=== PATIENT | male | born 1935 ===

== ENCOUNTER 2017-06-25 09:23 | Observation (INO) | payer MEDICARE, OTHER ==
[2017-06-25 09:49] VITALS: BMI 21.5
[2017-06-25] MEDS ORDERED: DiphenhydrAMINE 50 mg/ml Inj IV STA (09:52)
[2017-06-25] MEDS ORDERED: DiphenhydrAMINE 50 mg/ml Inj ONE (09:55)
--- NOTE | 2017-06-25 10:00 | ED PDOC ---
HPI: Allergic Reaction Time Seen by Provider: 06/25/17 09:34 Chief Complaint (Nursing): Allergic Reaction Chief Complaint (Provider): Facial Swelling History Per: Patient History/Exam Limitations: no limitations Onset/Duration Of Symptoms: Days (1 day ago) Current Symptoms Are (Timing): Still Present Additional Complaint(s): 82 yo male with a history of hypertension and diabetes mellitus, presents to the ED complaining of facial swelling with associated itchiness to arms and legs bilaterally, onset of 1 day ago. Patient reports of visiting [facility] and was discharged with a Prednisone prescription, but did not fill out the prescription. Patient's then woke up this morning with worsened facial swelling, prompting his visit to the ED. He denies any throat swelling, shortness of breath, difficulty swallowing, wheezing, vomiting , diarrhea or dizziness. PCP: Dr. Pemberton Past Medical History Reviewed: Historical Data, Nursing Documentation, Vital Signs Vital Signs: Last Vital Signs Temp 98 F 06/25/17 09:47 Pulse 121 H 06/25/17 09:47 Resp 20 06/25/17 09:47 BP 128/77 06/25/17 09:47 Pulse Ox 99 06/25/17 09:47 - Medical History PMH: Diabetes, HTN - Surgical History Surgical History: No Surg Hx - Family History Family History: States: Unknown Family Hx - Social History Current smoker - smoking cessation education provided: No Ex-Smoker (has not smoked in the last 12 months): No Alcohol: Social Drugs: Denies - Home Medications Home Medications: Ambulatory Orders Medication Instructions Recorded Amlodipine Bes/Olmesartan Med 1 each PO DAILY 06/25/17 [Hanny 5-40 mg Tablet] Aspirin [Aspirin Chewable] 81 mg PO DAILY 06/25/17 Cholecalciferol (Vitamin D3) 2,000 unit PO DAILY 06/25/17 [Vitamin D3] Clopidogrel [Plavix] 75 mg PO DAILY 06/25/17 Empagliflozin [Jardiance] 25 mg PO DAILY 06/25/17 Ferrous Sulfate [Ferosul] 325 mg PO DAILY 06/25/17 Finasteride [Proscar] 5 mg PO DAILY 06/25/17 Linagliptin [Tradjenta] 5 mg PO DAILY 06/25/17 Metformin HCl [Metformin HCl ER] 1,000 mg PO DAILY 06/25/17 Omeprazole 40 mg PO DAILY 06/25/17 Tamsulosin HCl [Flomax] 0.4 mg PO DAILY 06/25/17 - Allergies Allergies/Adverse Reactions: Allergies Allergy/AdvReac Type Severity Reaction Status Date / Time No Known Allergies Allergy Verified 06/25/17 09:46 Review of Systems ROS Statement: Except As Marked, All Systems Reviewed And Found Negative Constitutional: Positive for: Other (facial swelling, itchiness to arms and legs bilaterally) ENT: Negative for: Throat Swelling, Other (trouble swallowing) Respiratory: Negative for: Shortness of Breath, Wheezing Gastrointestinal: Negative for: Vomiting, Diarrhea Neurological: Negative for: Dizziness Physical Exam - Reviewed Nursing Documentation Reviewed: Yes Vital Signs Reviewed: Yes - Physical Exam Appears: Positive for: Non-toxic, No Acute Distress Head Exam: Positive for: ATRAUMATIC. Negative for: NORMOCEPHALIC (angioedema diffused to lower face and to both upper and lower lips) Skin: Positive for: Normal Color, Warm. Negative for: Rash Eye Exam: Positive for: Normal appearance, EOMI, PERRL ENT: Positive for: Normal ENT Inspection. Negative for: Other (tongue swelling) Neck: Positive for: Normal, Painless ROM Cardiovascular/Chest: Positive for: Regular Rate, Rhythm. Negative for: Murmur Respiratory: Positive for: Normal Breath Sounds. Negative for: Respiratory Distress Gastrointestinal/Abdominal: Positive for: Normal Exam, Soft. Negative for: Tenderness Back: Positive for: Normal Inspection Extremity: Positive for: Normal ROM, Other (no erythema). Negative for: Pedal Edema, Deformity Neurologic/Psych: Positive for: Alert, Oriented. Negative for: Motor/Sensory Deficits - Laboratory Results Result Diagrams: 06/25/17 12:55 06/25/17 12:55 - ECG O2 Sat by Pulse Oximetry: 99 (RA) Pulse Ox Interpretation: Normal - Critical Care Total Time (In Min): 30 Disposition - Clinical Impression Clinical Impression: Angioedema - Patient ED Disposition Is Patient to be Admitted: Yes Discussed With : Natanael Pemberton Doctor Will See Patient In The: Hospital Counseled Patient/Family Regarding: Studies Performed, Diagnosis - Disposition Disposition Time: 12:22 Condition: FAIR - Pt Status Changed To: Hospital Disposition Of: Inpatient - Admit Certification Admit to Inpatient:: After my assessment, the patient will require hospitalization for at least two midnights. This is because of the severity of symptoms shown, intensity of services needed, and/or the medical risk in this patient being treated as an outpatient. - POA Present On Arrival: None Medical Decision Making Medical Decision Making: Time: --09:52 Impression: --Angioedema Differential: -- allergic reaction vs Angioedema induced by MOIZ inhibitors Plan: --diphenhydramine 25 mg IV --Famotidine 20mg IVP --methylprednisolone 125 mg IVP Reassess 1200 Improved but still with angioedema. Required admission for airway monitoring to ICU. [address] Sanchez for admission to ICU [address] Fuchs for consult. Recommends decadrone. Scribe Attestation: Documented by Stalin Saini acting as a scribe for Grace Aviles MD.
[2017-06-25] MEDS ORDERED: Dexamethasone 10 MG in Sodium Chloride 0.9% 50 ML IV ONE (12:27)
[2017-06-25 13:08] LABS: BASO % 0.1 % (0.0-2.0); HEMOGLOBIN 13.8 g/dL (12.0-18.0); LYMPH # 0.5 K/uL (1.0-4.3); MEAN CELL VOLUME 85.8 fl (80.0-94.0); MEAN CORPUSCULAR HEMOGLOBIN 27.5 pg (27.0-31.0); MEAN CORPUSCULAR HGB CONC 32.1 g/dL (33.0-37.0); MEAN PLATELET VOLUME 9.4 fl (7.2-11.7); MONO # 0.1 K/uL (0.0-0.8); MONO % 0.5 % (0.0-10.0); NEUT % 95.4 % (50.0-75.0); NRBC % 0.1 % (0.0-0.0); PLATELET COUNT 334 K/uL (130-400); RBC 5.02 Mil/uL (4.40-5.90); WHITE BLOOD COUNT 13.6 K/uL (4.8-10.8)
[2017-06-25 13:16] LABS: CALCIUM 9.8 mg/dL (8.4-10.2)
--- NOTE | 2017-06-25 13:38 | CP.CCUPN ---
CCU Subjective - Physician Review Events Since Last Encounter (Free Text): 06/25/17 13:34 82 male with a history of hypertension, diabetes mellitus, came to ER complaining of facial swelling and itching to arms and legs for 1. Patient was seen at [facility] yesterday and was discharged with a Prednisone prescription, but did not fill out the prescription. Patient's woke up this morning with worsened facial swelling. He denies any throat swelling, shortness of breath, difficulty swallowing, wheezing, vomiting , diarrhea, dizziness or chest pain CCU Objective - Vital Signs / Intake & Output Vital Signs (Last 4 hours): Vital Signs Temp Pulse Resp BP Pulse Ox 06/25/17 12:36 98 F 97 H 20 131/77 100 06/25/17 12:15 99 06/25/17 10:56 93 H 19 134/81 100 06/25/17 09:47 98 F 121 H 20 128/77 99 Intake and Output (Last 8hrs): Intake & Output 06/24/17 06/25/17 06/25/17 22:59 06:59 14:59 Weight 150 lb - Physical Exam Head: Positive for: Atraumatic, Normocephalic, Other (swallen lips) Pupils: Positive for: PERRL Extroacular Muscles: Positive for: EOMI Conjunctiva: Positive for: Normal Mouth: Positive for: Moist Mucous Membranes Nose (External): Positive for: Atraumatic Neck: Positive for: Normal Range of Motion Respiratory/Chest: Positive for: Clear to Auscultation Cardiovascular: Positive for: Regular Rate and Rhythm Abdomen: Positive for: Normal Bowel Sounds Upper Extremity: Positive for: Normal Inspection Lower Extremity: Positive for: Normal Inspection Neurological: Positive for: GCS=15, Speech Normal Skin: Positive for: Warm, Dry Psychiatric: Positive for: Alert, Oriented x 3 - Patient Studies Lab Studies: Lab Studies 06/25/17 06/25/17 Range/Units 12:55 12:55 WBC 13.6 H (4.8-10.8) K/uL RBC 5.02 (4.40-5.90) Mil/uL Hgb 13.8 (12.0-18.0) g/dL Hct 43.1 (35.0-51.0) % MCV 85.8 (80.0-94.0) fl MCH 27.5 (27.0-31.0) pg MCHC 32.1 L (33.0-37.0) g/dL RDW 14.0 (11.5-14.5) % Plt Count 334 (130-400) K/uL MPV 9.4 (7.2-11.7) fl Neut % (Auto) 95.4 H (50.0-75.0) % Lymph % (Auto) 4.0 L (20.0-40.0) % [place] % (Auto) 0.5 (0.0-10.0) % Eos % (Auto) 0.0 (0.0-4.0) % Baso % (Auto) 0.1 (0.0-2.0) % Neut # (Auto) 13.0 H (1.8-7.0) K/uL Lymph # (Auto) 0.5 L (1.0-4.3) K/uL [place] # (Auto) 0.1 (0.0-0.8) K/uL Eos # (Auto) 0.0 (0.0-0.7) K/uL Baso # (Auto) 0.0 (0.0-0.2) K/uL Sodium 148 (132-148) mmol/l Potassium 4.7 (3.6-5.0) MMOL/L Chloride 105 (98-107) mmol/L Carbon Dioxide 23 (22-30) mmol/L Anion Gap 25 H (10-20) BUN 26 H (9-20) mg/dl Creatinine 1.5 (0.8-1.5) mg/dl Est GFR ( Amer) 54 Est GFR (Non-Af Amer) 45 Random Glucose 149 H (75-110) mg/dL Calcium 9.8 (8.4-10.2) mg/dL Laboratory Results - last 24 hr 06/25/17 06/25/17 12:55 12:55 WBC 13.6 H RBC 5.02 Hgb 13.8 Hct 43.1 MCV 85.8 MCH 27.5 MCHC 32.1 L RDW 14.0 Plt Count 334 MPV 9.4 Neut % (Auto) 95.4 H Lymph % (Auto) 4.0 L [place] % (Auto) 0.5 Eos % (Auto) 0.0 Baso % (Auto) 0.1 Neut # (Auto) 13.0 H Lymph # (Auto) 0.5 L [place] # (Auto) 0.1 Eos # (Auto) 0.0 Baso # (Auto) 0.0 Sodium 148 Potassium 4.7 Chloride 105 Carbon Dioxide 23 Anion Gap 25 H BUN 26 H Creatinine 1.5 Est GFR ( Amer) 54 Est GFR (Non-Af Amer) 45 Random Glucose 149 H Calcium 9.8 Assessment/Plan - Assessment and Plan (Free Text) Assessment: A/P Allergic reaction, angioedema, HTN, DM - ENT consult, called from ER - Continue steroid, bendryl, pepcid - Close moniter - DVT prophylaxis - FS with coverage Critical care 35 min
[2017-06-25 14:55] LABS: LYMPHOCYTE 3 % (20-50); MONOCYTE 1 % (0-10); NEUTROPHIL 96 % (42-75); PLATELET ESTIMATE NORMAL (NORMAL); TOTAL CELLS COUNTED 100
[2017-06-25] MEDS: Enoxaparin 40 mg Syringe SC SCH (15:28)
[2017-06-25] MEDS: Insulin Regular 100 units/ml SC SCH ×2 (16:42→22:00)
[2017-06-25] MEDS: Sodium Chloride 0.9% 1,000 ML IV SCH (16:50)
[2017-06-25] MEDS ORDERED: Dexamethasone 10 MG in Sodium Chloride 0.9% 50 ML IVPB SCH (17:00)
--- NOTE | 2017-06-25 20:20 | CP.PCM.HP ---
History of Present Illness - History of Present Illness History of Present Illness: This is an 82 y/o male with hx of HTN and DM 2 admitted for worsening of facial edema, lip edema and some throat discomfort for 1 day. He has no change in medications .He has been on his current medications for sometime. He claims that he started having pruritus all over his body as soon as he finished his dinner and noted progressive facial swelling. He sought consult at [facility] and was sent home on Prednisone. He noted worsening of sx as soon as he got home and woke up with more swelling hence sough consult at the ER. He denies having any SOB or wheezing. Medical Hx HTN HYperlipidemia DM 2 Allergies: None Present on Admission - Present on Admission Any Indicators Present on Admission: No History of DVT/PE: No History of Uncontrolled Diabetes: No Urinary Catheter: No Decubitus Ulcer Present: No Past Patient History - Past Medical History & Family History Past Medical History?: Yes - Past Social History Smoking Status: Never Smoked - CARDIAC Hx Hypertension: Yes - ENDOCRINE/METABOLIC Hx Diabetes Mellitus Type 2: Yes - HEMATOLOGICAL/ONCOLOGICAL Hx AIDS: No Hx Human Immunodeficiency Virus (HIV): No - MUSCULOSKELETAL/RHEUMATOLOGICAL Hx Falls: No - GENITOURINARY/GYNECOLOGICAL Hx Prostate Problems: Yes (hx of BPH) - PSYCHIATRIC Hx Substance Use: No - SURGICAL HISTORY Hx Herniorrhaphy: Yes (in 1994) - ANESTHESIA Hx Anesthesia: Yes Hx Anesthesia Reactions: No Hx Malignant Hyperthermia: No Has any member of the family had a problem w/ anesthesia?: No Meds Allergies/Adverse Reactions: Allergies Allergy/AdvReac Type Severity Reaction Status Date / Time No Known Allergies Allergy Verified 06/25/17 09:46 Physical Exam - Head Exam Additional comments: facial swelling lip edema - Eye Exam Eye Exam: Normal appearance - ENT Exam ENT Exam: Mucous Membranes Moist - Respiratory Exam Respiratory Exam: Clear to Auscultation Bilateral, NORMAL BREATHING PATTERN - Cardiovascular Exam Cardiovascular Exam: REGULAR RHYTHM - GI/Abdominal Exam GI & Abdominal Exam: Normal Bowel Sounds - Neurological Exam Neurological exam: CN II-XII Intact, Oriented x3 Results - Vital Signs Recent Vital Signs: Last Vital Signs Temp 98.0 F 06/25/17 17:58 Pulse 83 06/25/17 17:58 Resp 16 06/25/17 17:58 BP 128/69 06/25/17 17:58 Pulse Ox 98 06/25/17 17:58 - Labs Result Diagrams: 06/25/17 12:55 06/25/17 12:55 Labs: Laboratory Results - last 24 hr 06/25/17 06/25/17 06/25/17 12:55 12:55 15:18 WBC 13.6 H RBC 5.02 Hgb 13.8 Hct 43.1 MCV 85.8 MCH 27.5 MCHC 32.1 L RDW 14.0 Plt Count 334 MPV 9.4 Neut % (Auto) 95.4 H Lymph % (Auto) 4.0 L [place] % (Auto) 0.5 Eos % (Auto) 0.0 Baso % (Auto) 0.1 Neut # (Auto) 13.0 H Lymph # (Auto) 0.5 L [place] # (Auto) 0.1 Eos # (Auto) 0.0 Baso # (Auto) 0.0 Neutrophils % (Manual) 96 H Lymphocytes % (Manual) 3 L Monocytes % (Manual) 1 Platelet Estimate Normal RBC Morphology Normal Sodium 148 Potassium 4.7 Chloride 105 Carbon Dioxide 23 Anion Gap 25 H BUN 26 H Creatinine 1.5 Est GFR ( Amer) 54 Est GFR (Non-Af Amer) 45 POC Glucose (mg/dL) 125 H Random Glucose 149 H Calcium 9.8 Assessment & Plan (1) Angioedema Status: Acute (2) Hypertension Status: Acute (3) Diabetes mellitus type 2 in nonobese Status: Acute (4) Hyperlipidemia Status: Acute - Assessment and Plan (Free Text) Plan: Cont meds from home start IV solumedrol or Decadron benadryl ICU observe for onset of resp distress. Oxygen
[2017-06-25] MEDS: DiphenhydrAMINE 50 mg/ml Inj IVP SCH (20:40)
--- NOTE | 2017-06-25 22:43 | CON ---
DATE: 06/25/2017 REASON FOR CONSULTATION: Possible throat edema. REQUESTING PHYSICIAN: Emergency Room. HISTORY OF PRESENT ILLNESS: This is an 82-year-old male who began having edema of the face and lips today. It was [id number] in intensity. He presented to the ER. His symptoms were this constant. There was no shortness of breath, no dysphagia, no stridor and no hoarseness, the edema was on both sides of the face and lips. The patient was given steroids and was admitted to ICU. At this point, the patient was not complain of any edema. No hoarseness. No dysphagia. No shortness of breath. No stridor. PAST MEDICAL HISTORY: As noted in the chart by me. MEDICATIONS: As noted in the chart by me. PHYSICAL EXAMINATION: HEAD: Atraumatic and normocephalic. FACE: Good facial movements bilaterally. CONSTITUTIONAL: Well-fed, well-nourished. COMMUNICATION: Communicates well and appropriately. EXTERNAL NOSE AND EARS: No masses. No lesions. No erythema. No edema. INTERNAL NOSE: Deviated septum. No masses. No lesions. No erythema. No edema. ORAL CAVITY AND OROPHARYNX: No masses. No lesions. No erythema. No edema. LIPS AND GUMS: No masses. No lesions. No erythema. No edema. NECK: Supple. THYROID: No thyromegaly. No goiter. LYMPH NODES: No lymphadenopathy of the neck. ASSESSMENT: 1. Angioedema resolving. 2. Deviated septum. 3. Angioedema most likely secondary to MOIZ inhibitor if he is on it. If not he may be having an allergic reaction to one of his medications or foods that he ate. recommend allergy workup RECOMMEND: Changing blood pressure medications so that there is no MOIZ inhibitor. The patient can be discharged home tomorrow on a Medrol Dosepak. Gumaro Fuchs MD MTDCynthia
[2017-06-26 05:34] LABS: BASO % 0.1 % (0.0-2.0); LYMPH # 1.6 K/uL (1.0-4.3); LYMPH % 9.4 % (20.0-40.0); MEAN CELL VOLUME 86.7 fl (80.0-94.0); MEAN CORPUSCULAR HEMOGLOBIN 27.6 pg (27.0-31.0); MEAN CORPUSCULAR HGB CONC 31.9 g/dL (33.0-37.0); MEAN PLATELET VOLUME 9.9 fl (7.2-11.7); MONO # 0.6 K/uL (0.0-0.8); MONO % 3.4 % (0.0-10.0); NEUT # 14.5 K/uL (1.8-7.0); NEUT % 87.1 % (50.0-75.0); RBC 4.69 Mil/uL (4.40-5.90); RED CELL DISTRIBUTION WIDTH 14.2 % (11.5-14.5); WHITE BLOOD COUNT 16.6 K/uL (4.8-10.8)
[2017-06-26 05:49] LABS: CALCIUM 9.6 mg/dL (8.4-10.2)
[2017-06-26] MEDS: Insulin Regular 100 units/ml SC SCH ×2 (06:33→11:04)
--- NOTE | 2017-06-26 07:22 | CP.CCUPN ---
CCU Subjective - Physician Review Subjective (Free Text): 06/26/17 15:18 The patient was Seen/interviewed and examined by me at the bedside during ICU round, Medical records reviewed and Management issues were discussed and formulated with the house staff. Events reviewed 82 Years old Male with PMHx of of HTN, HLD, DM 2 and BPH He developed swelling of the face and lips and had some discomfort with swallowing after his dinner. Admitted with angioedema, placed on IV steroids and Benadtyl. Pt was evaluated by ENT, edema resolved and no airway obstructions This morning he feels well Clinically improving, and is hemodynamically stable, denies any chest pain or SOB Continue steroid, bendryl, pepcid and the plan is to transfer out of the ICU. CCU Objective - Vital Signs / Intake & Output Vital Signs (Last 4 hours): Vital Signs Temp Pulse Resp BP Pulse Ox 06/26/17 06:00 63 13 118/65 96 06/26/17 04:00 97.3 F L 72 12 102/49 L 97 Intake and Output (Last 8hrs): Intake & Output 06/25/17 06/26/17 06/26/17 22:59 06:59 14:59 Intake Total 400 500 Output Total 100 675 Balance 300 -175 Weight 134 lb 7 oz Intake: IV 400 500 Output: Urine 100 675 Urine, Voided 100 675 Other: # Voids Urine, Voided 1 # Bowel Movements 1 - Physical Exam Head: Positive for: Atraumatic, Normocephalic, Other (swallen lips) Pupils: Positive for: PERRL Extroacular Muscles: Positive for: EOMI Conjunctiva: Positive for: Normal Mouth: Positive for: Moist Mucous Membranes Nose (External): Positive for: Atraumatic Neck: Positive for: Normal Range of Motion Respiratory/Chest: Positive for: Clear to Auscultation Cardiovascular: Positive for: Regular Rate and Rhythm Abdomen: Positive for: Normal Bowel Sounds Upper Extremity: Positive for: Normal Inspection Lower Extremity: Positive for: Normal Inspection Neurological: Positive for: GCS=15, Speech Normal Skin: Positive for: Warm, Dry Psychiatric: Positive for: Alert, Oriented x 3 - Medications Active Medications: Active Medications Generic Name Dose Route Start Last Admin Trade Name Freq PRN Reason Stop Dose Admin Dexamethasone 10 mg 06/25/17 17:00 06/26/17 01:00 Decadron Inj IV 10 mg Q8 TOMAS Administration Diphenhydramine HCl 25 mg 06/25/17 21:00 06/25/17 20:40 Benadryl IVP 25 mg Q12 TOMAS Administration Enoxaparin Sodium 40 mg 06/25/17 14:00 06/25/17 15:28 Lovenox SC 40 mg DAILY TOMAS Administration Protocol Famotidine 20 mg 06/25/17 21:00 06/25/17 20:46 Famotidine IVP 20 mg Q12 TOMAS Administration Sodium Chloride 1,000 mls @ 50 mls/hr 06/25/17 16:45 06/25/17 16:50 Sodium Chloride 0.9% IV 06/26/17 16:44 50 mls/hr .Q20H TOMAS Administration Insulin Human Regular 0 units 06/25/17 16:30 06/26/17 06:33 Humulin R SC 3 units ACHS TOMAS Administration Protocol - Patient Studies Lab Studies: Lab Studies 06/26/17 06/26/17 06/26/17 Range/Units 05:22 04:30 04:30 WBC 16.6 H (4.8-10.8) K/uL RBC 4.69 (4.40-5.90) Mil/uL Hgb 13.0 (12.0-18.0) g/dL Hct 40.6 (35.0-51.0) % MCV 86.7 (80.0-94.0) fl MCH 27.6 (27.0-31.0) pg MCHC 31.9 L (33.0-37.0) g/dL RDW 14.2 (11.5-14.5) % Plt Count 336 (130-400) K/uL MPV 9.9 (7.2-11.7) fl Neut % (Auto) 87.1 H (50.0-75.0) % Lymph % (Auto) 9.4 L (20.0-40.0) % [place] % (Auto) 3.4 (0.0-10.0) % Eos % (Auto) 0.0 (0.0-4.0) % Baso % (Auto) 0.1 (0.0-2.0) % Neut # (Auto) 14.5 H (1.8-7.0) K/uL Lymph # (Auto) 1.6 (1.0-4.3) K/uL [place] # (Auto) 0.6 (0.0-0.8) K/uL Eos # (Auto) 0.0 (0.0-0.7) K/uL Baso # (Auto) 0.0 (0.0-0.2) K/uL Neutrophils % (Manual) (42-75) % Lymphocytes % (Manual) (20-50) % Monocytes % (Manual) (0-10) % Platelet Estimate (NORMAL) RBC Morphology (NORMAL) Sodium 150 H (132-148) mmol/l Potassium 5.3 H (3.6-5.0) MMOL/L Chloride 108 H (98-107) mmol/L Carbon Dioxide 22 (22-30) mmol/L Anion Gap 25 H (10-20) BUN 33 H (9-20) mg/dl Creatinine 1.6 H (0.8-1.5) mg/dl Est GFR ( Amer) 50 Est GFR (Non-Af Amer) 41 POC Glucose (mg/dL) 235 H (65-110) mg/dL Random Glucose 138 H (75-110) mg/dL Calcium 9.6 (8.4-10.2) mg/dL 06/25/17 06/25/17 06/25/17 Range/Units 21:40 15:18 12:55 WBC 13.6 H (4.8-10.8) K/uL RBC 5.02 (4.40-5.90) Mil/uL Hgb 13.8 (12.0-18.0) g/dL Hct 43.1 (35.0-51.0) % MCV 85.8 (80.0-94.0) fl MCH 27.5 (27.0-31.0) pg MCHC 32.1 L (33.0-37.0) g/dL RDW 14.0 (11.5-14.5) % Plt Count 334 (130-400) K/uL MPV 9.4 (7.2-11.7) fl Neut % (Auto) 95.4 H (50.0-75.0) % Lymph % (Auto) 4.0 L (20.0-40.0) % [place] % (Auto) 0.5 (0.0-10.0) % Eos % (Auto) 0.0 (0.0-4.0) % Baso % (Auto) 0.1 (0.0-2.0) % Neut # (Auto) 13.0 H (1.8-7.0) K/uL Lymph # (Auto) 0.5 L (1.0-4.3) K/uL [place] # (Auto) 0.1 (0.0-0.8) K/uL Eos # (Auto) 0.0 (0.0-0.7) K/uL Baso # (Auto) 0.0 (0.0-0.2) K/uL Neutrophils % (Manual) 96 H (42-75) % Lymphocytes % (Manual) 3 L (20-50) % Monocytes % (Manual) 1 (0-10) % Platelet Estimate Normal (NORMAL) RBC Morphology Normal (NORMAL) Sodium (132-148) mmol/l Potassium (3.6-5.0) MMOL/L Chloride (98-107) mmol/L Carbon Dioxide (22-30) mmol/L Anion Gap (10-20) BUN (9-20) mg/dl Creatinine (0.8-1.5) mg/dl Est GFR ( Amer) Est GFR (Non-Af Amer) POC Glucose (mg/dL) 120 H 125 H (65-110) mg/dL Random Glucose (75-110) mg/dL Calcium (8.4-10.2) mg/dL 06/25/17 Range/Units 12:55 WBC (4.8-10.8) K/uL RBC (4.40-5.90) Mil/uL Hgb (12.0-18.0) g/dL Hct (35.0-51.0) % MCV (80.0-94.0) fl MCH (27.0-31.0) pg MCHC (33.0-37.0) g/dL RDW (11.5-14.5) % Plt Count (130-400) K/uL MPV (7.2-11.7) fl Neut % (Auto) (50.0-75.0) % Lymph % (Auto) (20.0-40.0) % [place] % (Auto) (0.0-10.0) % Eos % (Auto) (0.0-4.0) % Baso % (Auto) (0.0-2.0) % Neut # (Auto) (1.8-7.0) K/uL Lymph # (Auto) (1.0-4.3) K/uL [place] # (Auto) (0.0-0.8) K/uL Eos # (Auto) (0.0-0.7) K/uL Baso # (Auto) (0.0-0.2) K/uL Neutrophils % (Manual) (42-75) % Lymphocytes % (Manual) (20-50) % Monocytes % (Manual) (0-10) % Platelet Estimate (NORMAL) RBC Morphology (NORMAL) Sodium 148 (132-148) mmol/l Potassium 4.7 (3.6-5.0) MMOL/L Chloride 105 (98-107) mmol/L Carbon Dioxide 23 (22-30) mmol/L Anion Gap 25 H (10-20) BUN 26 H (9-20) mg/dl Creatinine 1.5 (0.8-1.5) mg/dl Est GFR ( Amer) 54 Est GFR (Non-Af Amer) 45 POC Glucose (mg/dL) (65-110) mg/dL Random Glucose 149 H (75-110) mg/dL Calcium 9.8 (8.4-10.2) mg/dL Laboratory Results - last 24 hr 06/25/17 06/25/17 06/25/17 12:55 12:55 15:18 WBC 13.6 H RBC 5.02 Hgb 13.8 Hct 43.1 MCV 85.8 MCH 27.5 MCHC 32.1 L RDW 14.0 Plt Count 334 MPV 9.4 Neut % (Auto) 95.4 H Lymph % (Auto) 4.0 L [place] % (Auto) 0.5 Eos % (Auto) 0.0 Baso % (Auto) 0.1 Neut # (Auto) 13.0 H Lymph # (Auto) 0.5 L [place] # (Auto) 0.1 Eos # (Auto) 0.0 Baso # (Auto) 0.0 Neutrophils % (Manual) 96 H Lymphocytes % (Manual) 3 L Monocytes % (Manual) 1 Platelet Estimate Normal RBC Morphology Normal Sodium 148 Potassium 4.7 Chloride 105 Carbon Dioxide 23 Anion Gap 25 H BUN 26 H Creatinine 1.5 Est GFR ( Amer) 54 Est GFR (Non-Af Amer) 45 POC Glucose (mg/dL) 125 H Random Glucose 149 H Calcium 9.8 06/25/17 06/26/17 06/26/17 21:40 04:30 04:30 WBC 16.6 H RBC 4.69 Hgb 13.0 Hct 40.6 MCV 86.7 MCH 27.6 MCHC 31.9 L RDW 14.2 Plt Count 336 MPV 9.9 Neut % (Auto) 87.1 H Lymph % (Auto) 9.4 L [place] % (Auto) 3.4 Eos % (Auto) 0.0 Baso % (Auto) 0.1 Neut # (Auto) 14.5 H Lymph # (Auto) 1.6 [place] # (Auto) 0.6 Eos # (Auto) 0.0 Baso # (Auto) 0.0 Neutrophils % (Manual) Lymphocytes % (Manual) Monocytes % (Manual) Platelet Estimate RBC Morphology Sodium 150 H Potassium 5.3 H Chloride 108 H Carbon Dioxide 22 Anion Gap 25 H BUN 33 H Creatinine 1.6 H Est GFR ( Amer) 50 Est GFR (Non-Af Amer) 41 POC Glucose (mg/dL) 120 H Random Glucose 138 H Calcium 9.6 06/26/17 05:22 WBC RBC Hgb Hct MCV MCH MCHC RDW Plt Count MPV Neut % (Auto) Lymph % (Auto) [place] % (Auto) Eos % (Auto) Baso % (Auto) Neut # (Auto) Lymph # (Auto) [place] # (Auto) Eos # (Auto) Baso # (Auto) Neutrophils % (Manual) Lymphocytes % (Manual) Monocytes % (Manual) Platelet Estimate RBC Morphology Sodium Potassium Chloride Carbon Dioxide Anion Gap BUN Creatinine Est GFR ( Amer) Est GFR (Non-Af Amer) POC Glucose (mg/dL) 235 H Random Glucose Calcium Fingerstick Blood Sugar Results: 235 Review of Systems - Cardiovascular Cardiovascular: absent: As Per HPI, Acrocyanosis, Chest Pain, Chest Pain at Rest , Chest Pain with Activity, Claudication, Diaphoresis, Dyspnea, Dyspnea on Exertion, Edema, Irregular Heart Rhythm, Pain Radiating to Arm/Neck/Jaw, Leg Edema, Leg Ulcers, Lightheadedness, Orthopnea, Palpitations, Paroxysmal Nocturnal Dyspnea, Pedal Edema, Radiating Pain, Rapid Heart Rate, Slow Heart Rate, Syncope, Other, UNREMARKABLE - Respiratory Respiratory: absent: As Per HPI, Cough, Dyspnea, Hemoptysis, Dyspnea on Exertion , Wheezing, Snoring, Stridor, Pain on Inspiration, Chest Congestion, Excessive Mucous Production, Change in Mucous Color, Pain with Coughing, Other, UNREMARKABLE Critical Care Progress Note - Extremities/Vascular Does the Patient have a Central Venous Catheter?: No Does the Patient need a Central Venous Catheter?: No Does the Patient have a Dowell Catheter?: No Does the Patient need a Dowell Catheter?: No Assessment/Plan (1) Angioedema Status: Acute (2) Diabetes mellitus type 2 in nonobese Status: Acute (3) Hyperlipidemia Status: Acute (4) Hypertension Status: Acute
[2017-06-26] MEDS: DiphenhydrAMINE 50 mg/ml Inj IVP SCH (08:25)
[2017-06-26] MEDS: Enoxaparin 40 mg Syringe SC SCH (08:26)
[2017-06-26 08:40] VITALS: RESP 16; TEMP 98.2
[2017-06-26 10:13] VITALS: BP 114/63; PULSE 79; O2SAT 97
[2017-06-26] MEDS: Sodium Chloride 0.9% 1,000 ML IV SCH (10:25)
--- NOTE | 2017-06-26 10:56 | CP.PCM.DIS ---
Provider - Provider Date of Admission: 06/25/17 12:22 Attending physician: Natanael Pemberton MD Primary care physician: Natanael Pemberton MD Time Spent in preparation of Discharge (in minutes): 30 Diagnosis - Discharge Diagnosis (1) Angioedema Status: Acute (2) Hypertension Status: Acute (3) Diabetes mellitus type 2 in nonobese Status: Acute (4) Hyperlipidemia Status: Acute Hospital Course - Lab Results Lab Results: Most Recent Lab Values WBC 16.6 K/uL (4.8-10.8) H 06/26/17 04:30 RBC 4.69 Mil/uL (4.40-5.90) 06/26/17 04:30 Hgb 13.0 g/dL (12.0-18.0) 06/26/17 04:30 Hct 40.6 % (35.0-51.0) 06/26/17 04:30 MCV 86.7 fl (80.0-94.0) 06/26/17 04:30 MCH 27.6 pg (27.0-31.0) 06/26/17 04:30 MCHC 31.9 g/dL (33.0-37.0) L 06/26/17 04:30 RDW 14.2 % (11.5-14.5) 06/26/17 04:30 Plt Count 336 K/uL (130-400) 06/26/17 04:30 MPV 9.9 fl (7.2-11.7) 06/26/17 04:30 Neut % (Auto) 87.1 % (50.0-75.0) H 06/26/17 04:30 Lymph % (Auto) 9.4 % (20.0-40.0) L 06/26/17 04:30 [place] % (Auto) 3.4 % (0.0-10.0) 06/26/17 04:30 Eos % (Auto) 0.0 % (0.0-4.0) 06/26/17 04:30 Baso % (Auto) 0.1 % (0.0-2.0) 06/26/17 04:30 Neut # (Auto) 14.5 K/uL (1.8-7.0) H 06/26/17 04:30 Lymph # (Auto) 1.6 K/uL (1.0-4.3) 06/26/17 04:30 [place] # (Auto) 0.6 K/uL (0.0-0.8) 06/26/17 04:30 Eos # (Auto) 0.0 K/uL (0.0-0.7) 06/26/17 04:30 Baso # (Auto) 0.0 K/uL (0.0-0.2) 06/26/17 04:30 Neutrophils % (Manual) 96 % (42-75) H 06/25/17 12:55 Lymphocytes % (Manual) 3 % (20-50) L 06/25/17 12:55 Monocytes % (Manual) 1 % (0-10) 06/25/17 12:55 Platelet Estimate Normal (NORMAL) 06/25/17 12:55 RBC Morphology Normal (NORMAL) 06/25/17 12:55 Sodium 150 mmol/l (132-148) H 06/26/17 04:30 Potassium 5.3 MMOL/L (3.6-5.0) H 06/26/17 04:30 Chloride 108 mmol/L (98-107) H 06/26/17 04:30 Carbon Dioxide 22 mmol/L (22-30) 06/26/17 04:30 Anion Gap 25 (10-20) H 06/26/17 04:30 BUN 33 mg/dl (9-20) H 06/26/17 04:30 Creatinine 1.6 mg/dl (0.8-1.5) H 06/26/17 04:30 Est GFR ( Amer) 50 06/26/17 04:30 Est GFR (Non-Af Amer) 41 06/26/17 04:30 POC Glucose (mg/dL) 235 mg/dL (65-110) H 06/26/17 05:22 Random Glucose 138 mg/dL (75-110) H 06/26/17 04:30 Calcium 9.6 mg/dL (8.4-10.2) 06/26/17 04:30 - Hospital Course Hospital Course: This is an 82 y/o male admitted yesterday for angioedema. He developed swelling of the face and lips and had some discomfort with swallowing after his dinner. Review of meds showed that he has been on maintenance of Amlodipine/ Olmesartan. He had never had any problems with any of hios medications. He has a hx of HTN and DM 2 and BPH. He was admitted to ICU due to some associated respiratory symptoms. He was given IV solumedrol then switched to Decadron and was given Benadryl. He responded very well and was sent home in stable condition on po Prednisone. He was advised to continue all his medications but will be maintained on Amlodipine. Discharge Exam - Head Exam Head Exam: ATRAUMATIC. absent: NORMOCEPHALIC (angioedema diffused to lower face and to both upper and lower lips) - Eye Exam Eye Exam: Normal appearance - Respiratory Exam Respiratory Exam: NORMAL BREATHING PATTERN - Cardiovascular Exam Cardiovascular Exam: REGULAR RHYTHM - GI/Abdominal Exam GI & Abdominal Exam: Normal Bowel Sounds - Neurological Exam Neurological exam: CN II-XII Intact, Oriented x3 - Psychiatric Exam Psychiatric exam: Normal Mood Discharge Plan - Follow Up Plan Condition: FAIR Disposition: HOME/ ROUTINE Additional Instructions: Rx given for amlodipine, Patient was advised to continue prednisone and famotidine, will follow up in 1 week. Referrals: Natanael Pemberton MD [Primary Care Provider] -
== END 2017-06-26 12:36 | disposition home or self-care (01) ==
LOC: SUPCPDRO 09:23 → H.ER 09:23 → INTOOBSV 12:22 → H.ERHOLD 12:22 → H.ICU/CCU 13:55
PROVIDERS: ADMIT Family Medicine; ATTEND Family Medicine
DX: T78.3XXA Angioneurotic edema, initial encounter (principal); I10 Essential (primary) hypertension; E78.5 Hyperlipidemia, unspecified; E11.9 Type 2 diabetes mellitus without complications; N40.0 Benign prostatic hyperplasia without lower urinary tract symptoms; J34.2 Deviated nasal septum
CPT/HCPCS: 80048; 82948; 85025; 87081; 96374; 96375; 99285; G0378; J1100; J1200; J1650; J2930; J7040